=== PATIENT | male | born 2000 | race Caucasian/White ===

== ENCOUNTER → 2021-08-25 | Outpatient (CLI) | payer OTHER ==
[~2021-08-25] MED LIST: ANUSOL-HC25 MG PR; DELSYM30 MG/5 ML PO; FLONASE 0.05% N16 GM; IBUPROFEN600 MG PO; NAPROSYN500 MG PO; TEST; ZOFRAN4 MG PO
== END ==
LOC: LAB 04:57
DX: Z02.83 Encounter for blood-alcohol and blood-drug test (principal)
CPT/HCPCS: 36415